=== PATIENT | female | born 2000 | race Caucasian/White ===

== ENCOUNTER 2024-05-17 11:03 | Emergency (ER) | payer BC ==
[~2024-05-17] VITALS: Ht 157.5 cm; Wt 88.6 kg
[2024-05-17] MEDS ORDERED: NS 1,000 ML IV ONE (11:45)
[2024-05-17 12:08] LABS: BASO % 0.5 % (0.0-2.0); EOS # 0.1 K/mm3 (0.0-0.7); EOS % 1.2 % (0.0-4.0); GRAN # 3.5 K/mm3 (1.4-6.5); GRAN % 48.2 % (42.2-75.2); HEMATOCRIT 40.5 % (37.0-47.0); HEMOGLOBIN 13.3 g/dl (12.5-16.0); LYMPH % 40.4 % (20.0-51.0); MEAN CELL VOLUME 81 fl (80.0-100.0); MEAN CORPUSCULAR HEMOGLOBIN 27 pg (27-31); MEAN CORPUSCULAR HGB CONC 33 g/dl (33.0-37.0); MEAN PLATELET VOLUME 9.4 fl (7.4-10.4); MONO # 0.7 K/mm3 (0.1-0.6); MONO % 9.3 % (1.7-9.3); PLATELET COUNT 281 K/mm3 (130-400); REDCELL DISTRIBUTION WIDTH-CV 12.8 % (11.5-14.5)
[2024-05-17 12:09] LABS: ALBUMIN 3.8 g/dL (3.5-5.0); BILIRUBIN,TOTAL 0.5 mg/dL (0.2-1.2); C-REACTIVE PROTEIN 0.46 mg/dL (0.00-0.50); CALCIUM 9.3 mg/dL (8.4-10.2); CREATININE, serum 0.64 mg/dL (0.57-1.11); POTASSIUM 3.9 mEq/L (3.5-4.5); TOTAL PROTEIN 7.5 g/dl (6.2-8.1)
[2024-05-17] MEDS ORDERED: Iohexol 300 - 100 ML VIAL IV ONE (13:11)
[2024-05-17] MEDS ORDERED: NS 100 ML IV SCH (13:12)
[2024-05-17 14:26] VITALS: BP 115/70; PULSE 76; TEMP 98.8
== END 2024-05-17 14:26 | disposition home or self-care (01) ==
LOC: COL.ER 11:03
PROVIDERS: Nurse Practitioner
DX: N83.201 Unspecified ovarian cyst, right side (principal)
CPT/HCPCS: J7030; Q9967